=== PATIENT | male | born 1980 | race American Indian/Alaskan Native ===

== ENCOUNTER 2016-04-27 10:31 | Emergency (ER) | payer SELFPAY ==
[2016-04-27 10:45] VITALS: BP 142/96
--- NOTE | 2016-04-27 11:05 | Emergency Department Report ---
Chief Complaint: Upper Respiratory Infection Stated Complaint: CHEST PAIN/DIPAK Time Seen by Provider: 04/27/16 11:04 - HPI History of Present Illness: Patient here reports chest pain and difficulty breathing. He is also reporting that he has a cough and had a fever. Reports nasal drainage and congestion. He reports that he thinks he has upper respiratory infection. Denies any nausea vomiting. Chest pain is associated with coughing. Denies any history of heart disease. Patient is 28 years old with no medical problems. - ROS Review of Systems: All systems are negative unless stated in HPI above. - Exam Vital Signs: Vital Signs 04/27/16 10:42 Temperature 98.9 F Pulse Rate 96 H Respiratory 16 Rate Blood Pressure 142/96 O2 Sat by Pulse 100 Oximetry Physical Exam: This 36-year-old male well-nourished well-developed in no acute distress. CV: Lung, S2 regular rate and rhythm Lungs: Dry cough. No rhonchi wheezes or rales. Normal work of breathing. MSE screening note: Focused history and physical exam performed. Due to findings the following was ordered:TBD ED Medical Decision Making - Medical Decision Making MDM:XRAY and EKG ED Disposition for MSE Condition: Stable
--- NOTE | 2016-04-27 12:45 | XRay Report ---
ROUTINE CHEST, TWO VIEWS: PA and lateral views demonstrate the heart and mediastinal contour to be of normal size and shape. The lungs are clear and fully expanded and the soft tissues and bony structures are normal. IMPRESSION: Normal study.
--- NOTE | 2016-04-29 10:44 | ED Elopement Review ---
ED Pt Elopement review - Call Back decision Pt Call Back Decision: No action required
== END 2016-04-27 14:15 | disposition left against medical advice (07) ==
LOC: ED 10:31
DX: R07.9 Chest pain, unspecified (principal); R06.00 Dyspnea, unspecified; R05 Cough; Z53.21 Procedure and treatment not carried out due to patient leaving prior to being seen by health care provider
CPT/HCPCS: 71020; 93005; 93010